=== PATIENT | female | born 1970 | race Caucasian/White ===

== ENCOUNTER → 2016-10-09 | Outpatient (REF) | payer OTHER | LOC: M LAB REF 12:18 | PROVIDERS: ATTEND Nurse Practitioner Adult Health | DX: D50.9 Iron deficiency anemia, unspecified (principal) ==

== ENCOUNTER → 2017-03-19 | Outpatient (REF) | payer OTHER | LOC: M LAB REF 16:28 | PROVIDERS: ATTEND Nurse Practitioner Adult Health | DX: R50.9 Fever, unspecified (principal) ==

== ENCOUNTER 2018-06-10 09:03 | Emergency (ER) | payer OTHER ==
[~2018-06-10] VITALS: Ht 162.6 cm; Wt 65.9 kg
[2018-06-10] MEDS ORDERED: ALPR0.5T3 (09:11)
[2018-06-10] MEDS ORDERED: PERCOCET 5MG/325MG TAB PO ONE (09:45)
--- NOTE | 2018-06-10 09:52 | REP ---
Left wrist series: Four views. History: Injury in a fall. Findings: There is a transversely oriented fracture through the distal radial metaphysis with very slight dorsal comminution and impaction. Otherwise nondisplaced. Distal ulna appears intact. There is associated swelling. No carpal injury is seen. There is first carpometacarpal joint osteoarthritic spurring. Impression: Very slightly impacted distal radial metaphyseal fracture. Electronically Signed by Abundio Peña MD 06/10/2018 09:43 A
[2018-06-10] MEDS ORDERED: NORCOTAB PO (10:14)
[2018-06-10 10:23] VITALS: BP 119/74
== END 2018-06-10 10:50 | disposition home or self-care (01) ==
LOC: M ED 09:03
DX: S52.592A Other fractures of lower end of left radius, initial encounter for closed fracture (principal); W00.0XXA Fall on same level due to ice and snow, initial encounter; Y92.018 Other place in single-family (private) house as the place of occurrence of the external cause; F17.210 Nicotine dependence, cigarettes, uncomplicated

== ENCOUNTER → 2020-01-10 | Outpatient (REF) | payer OTHER ==
[~2020-01-10] MED LIST: ALPR0.5T3; HYDR-3715 PO
[2020-01-12 16:08] LABS: Lyme Disease IgG/IgM Antibodie <0.91 ISR (0.00-0.90); Lyme Disease IgM Ab Quantitati <0.80 index (0.00-0.79)
== END ==
LOC: M LAB REF 09:02
PROVIDERS: ATTEND Nurse Practitioner Adult Health
DX: Z11.9 Encounter for screening for infectious and parasitic diseases, unspecified (principal); W57.XXXA Bitten or stung by nonvenomous insect and other nonvenomous arthropods, initial encounter

== ENCOUNTER 2021-01-29 13:30 | Emergency (ER) | payer OTHER ==
[~2021-01-29] VITALS: Ht 160 cm; Wt 65.9 kg
[2021-01-29] MEDS ORDERED: ATOR80TA59 (16:28)
[2021-01-29] MEDS ORDERED: POTA20TA6 (16:28)
[2021-01-29 16:30] LABS: BASO # 0.1 10^3/uL (0.0-0.2); BASO % 0.9 % (0.0-1.0); EOS # 0.4 10^3/uL (0.0-0.5); EOS % 5.1 % (0.0-3.0); HEMOGLOBIN 12.7 g/dl (12.0-15.5); LYMPH # 2.1 10^3/uL (1.5-5.0); LYMPH % 30.4 % (24.0-44.0); MEAN CORPUSCULAR HEMOGLOBIN 29.4 pg (27.0-33.0); MEAN CORPUSCULAR HGB CONC 33.4 g/dl (32.0-36.5); MONO # 0.6 10^3/uL (0.0-0.8); MONO % 8.1 % (2.0-8.0); NEUTROPHILS # 3.7 10^3/uL (1.5-8.5); NEUTROPHILS % 55.1 % (36.0-66.0); PLATELET COUNT, AUTOMATED 317 10^3/uL (150-450); RED BLOOD COUNT 4.32 10^6/uL (4.00-5.40); WHITE BLOOD COUNT 6.8 10^3/uL (4.0-10.0)
[2021-01-29 16:43] LABS: BLOOD UREA NITROGEN 5 MG/DL (7-18); CALCIUM LEVEL 9.6 MG/DL (8.5-10.1); CARBON DIOXIDE LEVEL 33 MEQ/L (21-32); CHLORIDE LEVEL 101 MEQ/L (98-107); CREATININE FOR GFR 0.66 MG/DL (0.55-1.30); GLOMERULAR FILTRATION RATE > 60.0 (>51); GLUCOSE, FASTING 93 MG/DL (70-100); POTASSIUM SERUM 3.4 MEQ/L (3.5-5.1); SODIUM LEVEL 143 MEQ/L (136-145)
--- NOTE | 2021-01-29 16:43 | REP ---
INDICATION: CHEST PAIN COMPARISON: 08/12/2015 TECHNIQUE: Portable AP view of the chest FINDINGS: The mediastinum and cardiac silhouette are stable and within normal limits for portable technique. Very subtle left basilar opacity raise the possibility of pneumonia/atelectasis. No effusion. No pneumothorax. Skeletal structures are intact. IMPRESSION: Subtle left lower lobe pneumonia/atelectasis. <Electronically signed by Shadi Hernandez > 01/29/21 [id number]
[2021-01-29] MEDS ORDERED: KETOROLAC 30 MG/ML 1ML VIAL IV ONE (17:00)
[2021-01-29] MEDS ORDERED: ALBUTEROL SULFATE 2.5 MG/0.5 ML INH NEB SOLN INH ONE (17:00)
[2021-01-29 17:19] LABS: CK-MB VALUE MASS 1.2 NG/ML (<3.6); CPK CREATINE PHOSPHOKINASE 50 U/L (26-192); NT-PRO BNP 40 PG/ML (<125); TROPONIN I < 0.02 NG/ML (< 0.10)
[2021-01-29 18:45] VITALS: BP 126/65
--- NOTE | 2021-01-31 07:31 | ECGEPIP ---
[facility] - ED Test Date: 2021-01-29 Pat Name: RAHAT CARDENAS Department: Room: - Gender: Female [employer] Supervisor: SHYANNE : 1970 Requested By: RAPHAEL Avila Order Number: [id number] Reading MD: Daly Moss Measurements Intervals [place] Rate: 65 P: 87 MA: 182 QRS: 74 QRSD: 68 T: 18 QT: 400 QTc: 416 Interpretive Statements Normal sinus rhythm Anterior infarct , age undetermined NSTTW abnormalities No prior Electronically Signed on 01-31-2021 7:31:05 EDT by Daly Moss
== END 2021-01-29 19:21 | disposition home or self-care (01) ==
LOC: M ED 13:30
DX: M94.0 Chondrocostal junction syndrome [Tietze] (principal); J98.11 Atelectasis; E78.5 Hyperlipidemia, unspecified; E87.6 Hypokalemia; Z79.899 Other long term (current) drug therapy; F12.20 Cannabis dependence, uncomplicated; F17.210 Nicotine dependence, cigarettes, uncomplicated
CPT/HCPCS: 71045; 80048; 82550; 82553; 83880; 84145; 85025; 85379; 87798; 93005; 93041; 94640; 94760; 96374; 99285; J1885

== ENCOUNTER → 2021-02-22 | Outpatient (CLI) | payer OTHER ==
[~2021-02-22] MED LIST changes: +ATOR80TA59; +POTA20TA6
--- NOTE | 2021-02-25 03:30 | REP ---
INDICATION: CHEST PAIN, COUGH COMPARISON: None TECHNIQUE: Axial noncontrast images from the thoracic inlet to the upper abdomen with coronal and sagittal reformations. This CT examination was performed using the following dose reduction techniques: Automated exposure control, adjustment of mA and/or kv according to the patient's size, and use of iterative reconstruction technique. FINDINGS: Lung scott are well aerated and demonstrate early emphysematous changes. There is small noncalcified nodule in the left apex (series 3, image 19) measuring approximately 4 mm. No further suspicious nodule or mass. No consolidation. No effusion. No pneumothorax. No axillary, hilar, or mediastinal adenopathy. Thoracic aorta, pulmonary vasculature and heart/pericardium appear normal. Surrounding musculoskeletal structures are intact and without acute osseous abnormality. Limited upper abdomen demonstrates normal bilateral adrenal glands. IMPRESSION: 1. Early emphysematous changes. 2. 4 mm nodule in the left apex, and high risk patients may warrant 12 month follow-up CT. <Electronically signed by Shadi Hernandez > 02/25/21 [id number]
== END ==
LOC: M PLAIMG 13:14
PROVIDERS: ATTEND Internal Medicine
DX: R07.9 Chest pain, unspecified (principal); R91.1 Solitary pulmonary nodule

== ENCOUNTER → 2021-08-05 | Outpatient (REF) | payer OTHER ==
[~2021-08-05] MED LIST changes: +POTA-151; -POTA20TA6
[2021-08-05 19:42] LABS: C REACTIVE PROTEIN QUANTITATIV 0.37 MG/DL (0.00-0.30); RHEUMATOID FACTOR QUANT < 10.0 IU/ML (<15.0)
== END ==
LOC: M LAB REF 16:52
PROVIDERS: ATTEND Nurse Practitioner Adult Health
DX: M25.50 Pain in unspecified joint (principal)

== ENCOUNTER → 2021-08-23 | Outpatient (CLI) | payer OTHER | LOC: M WUC 10:36 | PROVIDERS: ATTEND Nurse Practitioner Adult Health | DX: M25.541 Pain in joints of right hand (principal); M25.542 Pain in joints of left hand ==

== ENCOUNTER 2021-09-14 08:01 | Emergency (ER) | payer OTHER ==
[~2021-09-14] VITALS: Ht 162.6 cm; Wt 62.1 kg
[2021-09-14] MEDS ORDERED: ATOR40TA75 (08:17)
[2021-09-14 09:22] LABS: RSV AMPLIFICATION NEGATIVE (NEGATIVE)
[2021-09-14 11:00] VITALS: BP 124/69
[2021-09-14] MEDS ORDERED: VENTAER INH (11:19)
== END 2021-09-14 11:28 | disposition home or self-care (01) ==
LOC: M ED 08:01
DX: U07.1 COVID-19 (principal); R05.9 Cough, unspecified; R53.1 Weakness; E78.5 Hyperlipidemia, unspecified; F17.200 Nicotine dependence, unspecified, uncomplicated; Z87.442 Personal history of urinary calculi

== ENCOUNTER → 2022-05-27 | Outpatient (REF) | payer OTHER ==
[~2022-05-27] MED LIST changes: +ATOR40TA75; +VENTAER INH
[2022-05-27 13:29] LABS: C REACTIVE PROTEIN QUANTITATIV 0.4 MG/DL (<1.0)
[2022-05-27 13:31] LABS: RHEUMATOID FACTOR QUANT 4.8 IU/ML (<14)
[2022-05-27 13:32] LABS: URIC ACID 5.2 MG/DL (3.1-7.8)
[2022-05-28 18:08] LABS: CYCLIC CITRULLINATED PEPTIDE < 1 units (0-19); SSA SJOGRENS A <0.2 AI (0.0-0.9); SSB SJOGRENS B <0.2 AI (0.0-0.9)
== END ==
LOC: M LAB REF 11:20
PROVIDERS: ATTEND Internal Medicine
DX: M25.541 Pain in joints of right hand (principal); M25.542 Pain in joints of left hand

== ENCOUNTER → 2022-05-28 | Outpatient (CLI) | payer OTHER | LOC: M WUC 15:26 | PROVIDERS: ATTEND Internal Medicine | DX: M18.0 Bilateral primary osteoarthritis of first carpometacarpal joints (principal); M25.721 Osteophyte, right elbow ==

== ENCOUNTER 2022-08-19 08:34 | Day surgery (SDC) | payer OTHER ==
[~2022-08-19] VITALS: Ht 162.6 cm; Wt 67.0 kg
[2022-08-19] MEDS ORDERED: MIDAZOLAM INJ 2MG/2ML VIAL As Ordered ONE (09:33)
[2022-08-19] MEDS ORDERED: LIDOCAINE 2% 100MG/5ML SDV (FOR ANES.) As Ordered ONE (09:33)
[2022-08-19] MEDS ORDERED: propofoL 200 MG/20 ML VIAL As Ordered ONE (09:33)
[2022-08-19 10:40] VITALS: BP 141/79
== END 2022-08-19 10:51 | disposition home or self-care (01) ==
LOC: M OPP 08:34
PROVIDERS: ATTEND Internal Medicine Gastroenterology
DX: Z12.11 Encounter for screening for malignant neoplasm of colon (principal); K57.30 Diverticulosis of large intestine without perforation or abscess without bleeding; K64.8 Other hemorrhoids
CPT/HCPCS: 45378; J2250

== ENCOUNTER 2022-11-06 01:23 | Emergency (ER) | payer OTHER ==
[~2022-11-06] VITALS: Ht 162.6 cm; Wt 62.8 kg
[2022-11-06] MEDS ORDERED: MORPHINE 4 MG/ML 1ML VIAL As Ordered ONE (02:49)
[2022-11-06] MEDS ORDERED: ONDANSETRON 4MG 2ML VIAL As Ordered ONE (02:49)
[2022-11-06] MEDS ORDERED: MORPHINE 4 MG/ML 1ML VIAL IV ONE (02:50)
[2022-11-06] MEDS ORDERED: ONDANSETRON 4MG 2ML VIAL IV ONE (02:50)
[2022-11-06] MEDS ORDERED: fentaNYL 100 MCG/2 ML INJECTION IV ONE (03:55)
[2022-11-06] MEDS ORDERED: ACETAMINOPHEN 1000MG 100ML IV BAG IV ONE (03:55)
[2022-11-06 04:07] VITALS: BP 117/84; TEMP 97; O2SAT 99
[2022-11-06] MEDS ORDERED: TRAM50TA2 PO (04:53)
[2022-11-06] MEDS ORDERED: KETOROLAC 30 MG/ML 1ML VIAL IV ONE (05:30)
[2022-11-06] MEDS ORDERED: traMADol 50 MG TAB (HOME DOSE PACK) PO ONE (05:30)
[2022-11-11] MEDS ORDERED: OXYC1TAB23 PO (09:39)
== END 2022-11-06 05:51 | disposition home or self-care (01) ==
LOC: M ED 01:23
DX: S42.202A Unspecified fracture of upper end of left humerus, initial encounter for closed fracture (principal); W19.XXXA Unspecified fall, initial encounter; Y92.89 Other specified places as the place of occurrence of the external cause; Y93.89 Activity, other specified; Y99.0 Civilian activity done for income or pay
CPT/HCPCS: 73030; 73080; 96374; 96375; 99282; J0131; J1885; J2405; J3010

== ENCOUNTER → 2022-11-07 | Outpatient (CLI) | payer OTHER ==
[~2022-11-07] MED LIST changes: +TRAM50TA2 PO
== END ==
LOC: M SOG 15:20
PROVIDERS: ATTEND Physician Assistant
DX: S42.202A Unspecified fracture of upper end of left humerus, initial encounter for closed fracture (principal); W18.30XA Fall on same level, unspecified, initial encounter; Y92.009 Unspecified place in unspecified non-institutional (private) residence as the place of occurrence of the external cause

== ENCOUNTER 2022-11-12 10:21 | Day surgery (SDC) | payer OTHER ==
[~2022-11-12] VITALS: Ht 162.6 cm; Wt 65.8 kg
[~2022-11-12 10:21] MED LIST changes: +EPINEPHrine INJ 1 MG/ML 1ML AMP PN ONE; +LIDOCAINE 1% SDV 5ML VIAL PN ONE; +LIDOCAINE 2% 100MG/5ML SDV (FOR ANES.) As Ordered ONE; +MIDAZOLAM INJ 2MG/2ML VIAL IV PRN; +OXYC1TAB23 PO; +ROCURONIUM BROMIDE 50MG/5ML VIAL As Ordered ONE; +ROPIvacaine 0.5% 30ML VIAL PN ONE; +dexAMETHasone 10MG/1ML VIAL PRES.FREE PN ONE; +fentaNYL 100 MCG/2 ML INJECTION As Ordered ONE; +fentaNYL 100 MCG/2 ML INJECTION IV PRN; +propofoL 200 MG/20 ML VIAL As Ordered ONE
[2022-11-12] MEDS ORDERED: ceFAZolin SOD 2 GM in IV 1 EA IV ONE (11:05)
[2022-11-12] MEDS ORDERED: ALBUTEROL SULFATE 2.5MG/0.5ML INH NEB SOLN NEB ONE (11:10)
[2022-11-12] MEDS: MIDAZOLAM INJ 2MG/2ML VIAL IV PRN ×2 (11:38→11:39)
[2022-11-12] MEDS ORDERED: MIDAZOLAM INJ 2MG/2ML VIAL As Ordered ONE (11:54)
[2022-11-12] MEDS ORDERED: BACITRACIN OINTMENT 30GM TUBE As Ordered ONE (12:17)
[2022-11-12] MEDS ORDERED: ROPIvacaine 0.5% 30ML VIAL PN ONE (12:20)
[2022-11-12] MEDS ORDERED: LIDOCAINE W/EPINEPHRINE 1% 20ML VIAL As Ordered ONE (12:53)
[2022-11-12] MEDS ORDERED: ROCURONIUM BROMIDE 50MG/5ML VIAL As Ordered ONE (13:33)
[2022-11-12] MEDS ORDERED: SUGAMMADEX SODIUM 500 MG/5 ML VIAL (BRIDION) As Ordered ONE (14:06)
[2022-11-12] MEDS ORDERED: ACETAMINOPHEN 1000MG 100ML IV BAG As Ordered ONE (14:31)
[2022-11-12 15:51] VITALS: BP 126/67; TEMP 98.5; O2SAT 95
== END 2022-11-12 16:22 | disposition home or self-care (01) ==
LOC: M SDC 10:21
PROVIDERS: ATTEND Orthopaedic Surgery Hand Surgery
DX: S42.202A Unspecified fracture of upper end of left humerus, initial encounter for closed fracture (principal); W10.9XXA Fall (on) (from) unspecified stairs and steps, initial encounter; Y92.89 Other specified places as the place of occurrence of the external cause; Y93.01 Activity, walking, marching and hiking; F17.210 Nicotine dependence, cigarettes, uncomplicated; Z79.891 Long term (current) use of opiate analgesic
CPT/HCPCS: 23615; 76000; C1713; J0131; J0171; J0690; J1100; J2250; J2795; J3010

== ENCOUNTER → 2022-12-25 | Outpatient (CLI) | payer OTHER ==
[~2022-12-25] MED LIST changes: -EPINEPHrine INJ 1 MG/ML 1ML AMP PN ONE; -LIDOCAINE 1% SDV 5ML VIAL PN ONE; -LIDOCAINE 2% 100MG/5ML SDV (FOR ANES.) As Ordered ONE; -MIDAZOLAM INJ 2MG/2ML VIAL IV PRN; -ROCURONIUM BROMIDE 50MG/5ML VIAL As Ordered ONE; -ROPIvacaine 0.5% 30ML VIAL PN ONE; -dexAMETHasone 10MG/1ML VIAL PRES.FREE PN ONE; -fentaNYL 100 MCG/2 ML INJECTION As Ordered ONE; -fentaNYL 100 MCG/2 ML INJECTION IV PRN; -propofoL 200 MG/20 ML VIAL As Ordered ONE
== END ==
LOC: M SOG 08:05
PROVIDERS: ATTEND Physician Assistant
DX: S42.232A 3-part fracture of surgical neck of left humerus, initial encounter for closed fracture (principal); Y93.9 Activity, unspecified; Y92.9 Unspecified place or not applicable

== ENCOUNTER → 2023-01-20 | Outpatient (CLI) | payer OTHER | LOC: M SOG 13:08 | PROVIDERS: ATTEND Physician Assistant | DX: M25.512 Pain in left shoulder (principal); S42.202D Unspecified fracture of upper end of left humerus, subsequent encounter for fracture with routine healing ==

== ENCOUNTER → 2023-02-27 | Outpatient (CLI) | payer OTHER | LOC: M SOG 07:51 | PROVIDERS: ATTEND Physician Assistant | DX: M25.512 Pain in left shoulder (principal) ==